=== PATIENT | female | born 1950 | race Caucasian/White ===

== ENCOUNTER → 2017-09-30 | Outpatient (CLI) | payer MEDICARE ==
[~2017-09-30] MED LIST: ASPIRIN E.C. 8181 MG PO; BENADRYL25 M2 PO; FERROUS SULFATE65 MG PO; GLUCOPHAGE1000 MG PO; LASIX 20MG TABL20 MG PO; NORCO 325 MG-51 TAB PO; PRAVACHOL10 MG PO; PRILOSEC 20MG20 MG PO; TOPROL XL100 MG PO; ZESTRIL 10MG10 MG PO
== END ==
LOC: MC.RAD 12:38
DX: R22.32 Localized swelling, mass and lump, left upper limb (principal); Z85.3 Personal history of malignant neoplasm of breast

== ENCOUNTER 2017-10-08 06:54 | Day surgery (SDC) | payer MEDICARE ==
[~2017-10-08] VITALS: Ht 165.1 cm; Wt 73.2 kg
[2017-10-08 07:21] VITALS: BP 152/62; PULSE 88; TEMP 97.2
[2017-10-08] MEDS ORDERED: PRINIVIL20 MG PO (08:20)
[2017-10-08] MEDS ORDERED: ARIMIDEX1 MG PO (08:23)
[2017-10-08] MEDS ORDERED: NORCO 325 MG-101 TAB PO (08:24)
[2017-10-08] MEDS ORDERED: NITROSTAT0.4 MG/TAB SL (08:25)
[2017-10-08] MEDS ORDERED: TYLENOL 500MG500 MG PO (08:26)
[2017-10-08 09:26] VITALS: BP 114/67; PULSE 82
[2017-10-08 09:41] VITALS: BP 136/72; PULSE 75
[2017-10-08 09:56] VITALS: BP 129/66; PULSE 92
[2017-10-08 10:11] VITALS: BP 142/66; PULSE 72
== END 2017-10-08 10:30 | disposition home or self-care (01) ==
LOC: SDCO 06:54
DX: Z45.2 Encounter for adjustment and management of vascular access device (principal); C16.0 Malignant neoplasm of cardia; E11.9 Type 2 diabetes mellitus without complications; Z79.84 Long term (current) use of oral hypoglycemic drugs; I10 Essential (primary) hypertension; J44.9 Chronic obstructive pulmonary disease, unspecified; I25.10 Atherosclerotic heart disease of native coronary artery without angina pectoris; I11.9 Hypertensive heart disease without heart failure; Z85.09 Personal history of malignant neoplasm of other digestive organs; Z85.3 Personal history of malignant neoplasm of breast
CPT/HCPCS: C1788; J0690; J1644; J2250; J2405; J2704; J3010; J7030